=== PATIENT | female | born 2005 | race Caucasian/White ===

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

== ENCOUNTER 2023-11-13 15:05 | Emergency (ER) | payer BC, SELFPAY ==
[2023-11-13 15:07] VITALS: BP 119/81; PULSE 83; RESP 16; TEMP 36.2; O2SAT 98
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
[2023-11-13 17:36] VITALS: BP 111/73; PULSE 66; RESP 20; O2SAT 100
[2023-11-13] MEDS: Lidocaine 5% Patch 1 PATCH TP (17:36)
== END 2023-11-13 17:40 | disposition home or self-care (01) ==
PROVIDERS: Emergency Provider Emergency Medicine; PCP Registered Nurse Critical Care Medicine
DX: S16.1XXA Strain of muscle, fascia and tendon at neck level, initial encounter (principal); Y04.8XXA Assault by other bodily force, initial encounter
CPT/HCPCS: 81025; 99284; 72125; 99283

== ENCOUNTER 2024-08-18 14:08 | Emergency (ER) | payer BC, SELFPAY ==
[2024-08-18 14:12] VITALS: BP 115/83; PULSE 79; RESP 16; TEMP 36.6; O2SAT 98
--- NOTE | 2024-08-18 14:23 | W.ED.GENAD ---
Discharge Plan Disposition Patient Disposition: Against Medical Advice Discharge Details Clinical Impression: Headache, unspecified Primary Care Provider: Yajaira Brooks ED Provider: Mook Suarez Home Meds and New Rx's Prescriptions: No Action No Known Home Meds Discharge Instructions Additional Instructions: You are seen in the emergency department for your headache. You are advised to stay for some testing which you declined. Please return to the emergency department if you pass out develop worsening headache or have any vomiting that does not stop. For your pain please take medications as follows: 1. Take acetaminophen (Tylenol), 1,000 mg (two 500 mg tabs) every 6 hours [2. Take ibuprofen (Advil), 400 mg every 6 hours.] Discharge Data Discharge Date/Time-TO BE ENTERED AT DEPARTURE: 08/18/24 15:36 HPI General Date/Time Provider Initiated Documentation: 08/18/24 14:22. HPI Narrative: MDM This is an overall very well-appearing normothermic and not tachycardic 18-year-old female with acute on chronic headache for which patient received metoclopramide in the emergency department. I was planning on observing the patient in the emergency department and reassessing her but she requested to be discharged. She wanted to leave to go sleep in her own bed. She had not had any cervical spinal manipulation by chiropractor to suggest increased risk for cervical arterial dissection. No history of generator exposure to suggest carbon monoxide toxicity. No history of any recent rashes to suggest zoster. Based on patient's age I am not concerned for giant cell arteritis. Patient did not have a sudden onset headache so I was not suspicious for subarachnoid hemorrhage. Good range of motion in neck so my suspicion is low for retropharyngeal abscess. Uvula midline so doubt peritonsillar abscess. She was neurologically intact so my suspicion was low for acute stroke so I did not feel that she would be a lytic candidate. No tonic-clonic activity to suggest seizures and no indication for EEG. Normothermic and no nuchal rigidity so doubt meningitis so no indication for lumbar puncture. No tonic-clonic activity to suggest seizure. Patient has not been vomiting to suggest increased risk for subdural empyema. No diurnal symptoms to suggest intracranial mass. Bilateral TMs clear so not suspicious for acute otitis media. I had ordered CBC canceled after the patient signed out AGAINST MEDICAL ADVICE. Her mother is going to drive her home. I advised her that she had syncope or worsening headache that she should return to the emergency department. 1. I explained the current situation and condition to the patient. 2. I explained the recommended treatment for this condition ?monitoring of symptoms to the emergency department. 3. I explained the risk of not having the recommended treatment ?worsening headaches permanent or disability 4. The patient understands this information has no questions, and repeated back this information. 5. The patient states that they need to leave and will return if her symptoms worsen 6. Mental status is lucid and the patient has decision-making capacity. 7. Patient is withdrawing her consent for care HPI This is a 18-year-old female up-to-date with immunizations not on any home medications arrived emerged part via private vehicle with her mother in the setting of headache. Patient reports that she is intermittently had a headache for the past approximately 2 weeks. She took 600 mg of ibuprofen approximately 1 hour ago. She was on antibiotics for what sounds like acute otitis media and along with URI symptoms several weeks ago. Her earache has improved. She has not noticed any weakness. She did reportedly recently have a fever up to 100.5 ?F. This is approximately 1 week ago. She has had no vomiting no chest pain no shortness of breath. She does have some chronic abdominal pain. She is followed by rheumatology at [facility] and has had some positive blood tests. Exam General: Well-appearing in no acute distress speaking in complete sentences. Head: Normocephalic, atraumatic. Eye:[Pupils equal, round reactive to light.] Extraocular eye movements intact. No conjunctival injection. No scleral icterus. Ear, nose, mouth, throat: Grossly normal inspection. Normal voice, handling secretions normally. Bilateral TMs clear. Uvula midline. No significant posterior oropharynx erythema. Neck: Trachea midline. Cardiovascular: Well-perfused distal extremities. Regular rate and rhythm Respiratory: Nonlabored respiration. Clear lungs bilaterally. Gastrointestinal: Nondistended abdomen. Soft abdomen. Musculoskeletal: No edema. Moving all 4 extremities spontaneously. Skin: Normal for age and race, grossly normal temperature and turgor. No acute rash. Neurologic: Alert and appropriate, no apparent acute deficits. Cranial nerves II through XII intact grossly. Psychiatric: Mood and manner are appropriate. Grooming and personal hygiene are appropriate. Related Data Home Medications ?Medication ?Instructions ?Recorded ?Confirmed Unknown [No Known Home Meds] 07/28/24 07/28/24 Allergies Allergy/AdvReac Type Severity Reaction Status Date / Time No Known Allergies Allergy Unverified 11/13/23 15:13 General Stated Complaint: Headache COLETTE: 3 Course Vital Signs Vital signs: Vital Signs Temperature 36.6 C 08/18/24 14:12 Pulse 79 08/18/24 14:12 Respiratory Rate 16 08/18/24 14:12 Blood Pressure 115/83 08/18/24 14:12 Pulse Oximetry 98 08/18/24 14:12 Temperature 36.6 C 08/18/24 14:12 Temperature Source Oral 08/18/24 14:12 Pulse 79 08/18/24 14:12 Respiratory Rate 16 08/18/24 14:12 Blood Pressure 115/83 08/18/24 14:12 Blood Pressure Position Sitting 08/18/24 14:12 Pulse Oximetry 98 08/18/24 14:12 Oxygen Delivery Method Room Air 08/18/24 14:12 Oxygen Flow Rate 0 08/18/24 14:12 Medical Decision Making Quality:SDOH Health Related Social Needs: No Data to Display PFSH All Active Problems (Updated 08/18/24 @ 15:29 by Mook Suarez MD) Headache, unspecified (Acute) Medical History No significant past medical history Surgical History No significant past surgical history Social History Smoking/Tobacco Use Status: Never Smoking risk assessment performed?: Yes Alcohol Intake: never Substance use type: does not use Housing: house Do you feel safe at home: Yes Do you feel safe in your relationship?: Yes
[2024-08-18] MEDS: Normal Saline 500 ML 1000 ML IV (15:06)
[2024-08-18] MEDS: METOCLOPRAMIDE 10 MG in Normal Saline 50 ML 200 MG IVPB (15:07)
[2024-08-18] MEDS: Acetaminophen 500 MG TAB 1000 MG PO (15:08)
[2024-08-18 15:15] VITALS: BP 115/83; PULSE 79; RESP 16; TEMP 36.6; O2SAT 98
[2024-08-18 15:25] LABS: Anion Gap 4.3 mmol/L (3-11); BUN 11 mg/dL (7-18); CO2 30.7 mmol/L (21.0-32.0); CREATININE 0.8 mg/dL (0.55-1.02); Calcium 9.3 mg/dL (8.5-10.1); Chloride 106 mmol/L (98-107); Estimated GFR 108.11 (mL/min/1.73m2); Glucose 82 mg/dL (74-106); Potassium 4.1 mmol/L (3.5-5.1); Sodium 141 mmol/L (136-145)
[2024-08-18 16:03] LABS: HCG Qual (Serum) Negative
== END 2024-08-18 15:36 | disposition left against medical advice (07) ==
PROVIDERS: Emergency Provider Emergency Medicine; PCP Registered Nurse Critical Care Medicine
DX: R51.9 Headache, unspecified (principal); Z53.29 Procedure and treatment not carried out because of patient's decision for other reasons
CPT/HCPCS: 80048; 96365; 99284; 84703; 85025; 99283; J2765